=== PATIENT | male | born 1995 | race Caucasian/White ===

== ENCOUNTER 2017-05-27 05:31 | Emergency (ER) | payer OTHER ==
[2017-05-27] MEDS ORDERED: METAL LOCK LOOP XX (05:36)
[2017-05-27 07:57] LABS: BASO % 0.3 % (0.0-1.0); EOS # 0.1 10^3/uL (0.0-0.50); EOS % 0.8 % (0.0-3.0); IMMATURE GRANULOCYTE # 0.1 10^3/uL (0-0); IMMATURE GRANULOCYTE % 0.8 % (0-0); LYMPH # 0.4 10^3/uL (1.5-6.5); LYMPH % 5.4 % (24.0-44.0); MEAN CORPUSCULAR HEMOGLOBIN 39.1 pg (27.0-33.0); MEAN CORPUSCULAR VOLUME 105.7 fl (80.0-96.0); MONO # 0.2 10^3/uL (0.0-0.8); MONO % 3.2 % (0.0-5.0); NEUTROPHILS # 6.5 10^3/uL (1.8-7.7); NEUTROPHILS % 89.5 % (36.0-66.0); PLATELET COUNT, AUTOMATED 238 10^3/uL (150-450); WHITE BLOOD COUNT 7.2 10^3/uL (4.0-10.0)
[2017-05-27] MEDS: ACETAMINOPHEN 325 MG TAB PO (08:19)
[2017-05-27] MEDS: ONDANSETRON 4 MG ORAL DISINTEGRATING TAB (S0181) PO (09:06)
[2017-05-27] MEDS: OSELTAMIVIR PHOSPHATE 75 MG CAP (TAMIFLU) PO (09:06)
== END 2017-05-27 11:11 | disposition home or self-care (01) ==
LOC: M ED 05:31
DX: B34.9 Viral infection, unspecified (principal)
CPT/HCPCS: 71020

== ENCOUNTER → 2017-10-13 | Outpatient (REF) | payer OTHER | LOC: M LAB REF 13:37 | DX: R10.11 Right upper quadrant pain (principal) ==

== ENCOUNTER → 2017-10-13 | Outpatient (CLI) | payer OTHER ==
[2017-10-13 13:10] LABS: BASO % 0.7 % (0.0-1.0); EOS # 0.1 10^3/uL (0.0-0.50); EOS % 2.2 % (0.0-3.0); HEMATOCRIT 42.2 % (42.0-52.0); HEMOGLOBIN 15.3 g/dl (13.5-17.5); IMMATURE GRANULOCYTE % 0.4 % (0-3.0); LYMPH # 1.2 10^3/uL (1.5-6.5); MEAN CORPUSCULAR HEMOGLOBIN 36.3 pg (27.0-33.0); MEAN CORPUSCULAR HGB CONC 36.3 g/dl (32.0-36.5); MONO # 0.6 10^3/uL (0.0-0.8); MONO % 10.6 % (0.0-5.0); NEUTROPHILS # 3.6 10^3/uL (1.8-7.7); NEUTROPHILS % 64.1 % (36.0-66.0); PLATELET COUNT, AUTOMATED 256 10^3/uL (150-450); RED BLOOD COUNT 4.22 10^6/uL (4.30-6.10); RED CELL DISTRIBUTION WIDTH 10.8 % (11.5-14.5); WHITE BLOOD COUNT 5.5 10^3/uL (4.0-10.0)
[2017-10-13 13:33] LABS: ALBUMIN 3.9 GM/DL (3.2-5.2); ALBUMIN/GLOBULIN RATIO 1.08 (1.00-1.93); ALKALINE PHOSPHATASE 151 U/L (45-117); ALT/SGPT 40 U/L (12-78); ANION GAP 8 MEQ/L (8-16); AST/SGOT 16 U/L (7-37); BILIRUBIN,TOTAL 0.6 MG/DL (0.2-1.0); BLOOD UREA NITROGEN 15 MG/DL (7-18); CARBON DIOXIDE LEVEL 24 MEQ/L (21-32); CHLORIDE LEVEL 109 MEQ/L (98-107); CREATININE FOR GFR 0.85 MG/DL (0.70-1.30); GLOMERULAR FILTRATION RATE > 60.0 (>60); GLUCOSE, FASTING 69 MG/DL (70-100); LIPASE 92 U/L (73-393); POTASSIUM SERUM 4.1 MEQ/L (3.5-5.1); SODIUM LEVEL 141 MEQ/L (136-145); TOTAL PROTEIN 7.5 GM/DL (6.4-8.2)
== END ==
LOC: M WUC 11:06
DX: R10.11 Right upper quadrant pain (principal)
CPT/HCPCS: 83690

== ENCOUNTER 2018-03-03 11:11 | Inpatient (IN) | payer OTHER ==
[~2018-03-03 11:11] MED LIST: CEFEPIME HCL 1 GM in D5W MINI-BAG PLUS 50 ML IV
[2018-03-03 11:57] LABS: VENOUS PARTIAL PRESSURE CO2 34.9 mmHg (38.0-50.0); VENOUS PARTIAL PRESSURE O2 46.6 mmHg (30.0-50.0); VENOUS PH 7.453 UNITS (7.330-7.430); VENOUS TOTAL CO2 24.9 MEQ/L (24.0-28.0)
[2018-03-03 11:58] LABS: VENOUS BASE EXCESS 0.3 (-2.0-2.0); VENOUS HCO3 23.9 MEQ/L (23.0-27.0); VENOUS O2 SATURATION 85.5 % (60.0-80.0); VENOUS STANDARD HCO3 24.5 MEQ/L
[2018-03-03] MEDS: LEVALBUTEROL 1.25 MG/0.5 ML CONCENTRATE NEB INH (11:58)
[2018-03-03] MEDS ORDERED: CEFEPIME HCL 1 GM in D5W MINI-BAG PLUS 50 ML IV (12:00)
[2018-03-03] MEDS: NS 1,000 ML IV ×2 (12:20→14:30)
[2018-03-03] MEDS: CEFEPIME HCL 2 GM in D5W MINI-BAG PLUS 50 ML IV (12:21)
[2018-03-03] MEDS: ACETAMINOPHEN TAB 650MG DOSE (2X325MG) PO ×2 (12:24→15:14)
[2018-03-03] MEDS: NOREPINEPHRINE BITARTRATE 8 MG in D5W 492 ML IV (12:24)
[2018-03-03 12:30] LABS: BASO % 0.1 % (0.0-1.0); EOS % 0.1 % (0.0-3.0); HEMATOCRIT 30.2 % (42.0-52.0); HEMOGLOBIN 10.5 g/dl (13.5-17.5); IMMATURE GRANULOCYTE % 2.9 % (0-3.0); LYMPH # 0.5 10^3/uL (1.5-6.5); LYMPH % 3.4 % (24.0-44.0); MEAN CORPUSCULAR HEMOGLOBIN 37.8 pg (27.0-33.0); MEAN CORPUSCULAR HGB CONC 34.8 g/dl (32.0-36.5); MEAN CORPUSCULAR VOLUME 108.6 fl (80.0-96.0); MONO # 0.1 10^3/uL (0.0-0.8); MONO % 0.8 % (0.0-5.0); NEUTROPHILS # 12.4 10^3/uL (1.8-7.7); NEUTROPHILS % 92.7 % (36.0-66.0); PLATELET COUNT, AUTOMATED 210 10^3/uL (150-450); RED BLOOD COUNT 2.78 10^6/uL (4.30-6.10); RED CELL DISTRIBUTION WIDTH 13.3 % (11.5-14.5); WHITE BLOOD COUNT 13.4 10^3/uL (4.0-10.0)
[2018-03-03] MEDS ORDERED: HYDROCORTISONE 100 MG/2 ML VIAL (J1720) As Ordered (12:41)
[2018-03-03] MEDS: HYDROCORTISONE 100 MG/2 ML VIAL (J1720) IV ×2 (12:48→21:06)
[2018-03-03] MEDS: VANCOMYCIN HCL 1,000 MG, VIAL MATE ADAPTER 1 EACH in D5W 250 ML IV ×3 (12:53→18:51)
[2018-03-03 13:00] LABS: ALBUMIN 2.6 GM/DL (3.2-5.2); ALBUMIN/GLOBULIN RATIO 0.68 (1.00-1.93); ALKALINE PHOSPHATASE 77 U/L (45-117); ALT/SGPT 30 U/L (12-78); ANION GAP 9 MEQ/L (8-16); AST/SGOT 24 U/L (7-37); BILIRUBIN,DIRECT 0.3 MG/DL (0.0-0.2); BILIRUBIN,TOTAL 0.9 MG/DL (0.2-1.0); BLOOD UREA NITROGEN 6 MG/DL (7-18); CALCIUM LEVEL 8.2 MG/DL (8.5-10.1); CARBON DIOXIDE LEVEL 25 MEQ/L (21-32); CHLORIDE LEVEL 105 MEQ/L (98-107); CK-MB VALUE MASS < 1.0 NG/ML (<3.6); CPK CREATINE PHOSPHOKINASE 37 U/L (39-308); CREATININE FOR GFR 1.05 MG/DL (0.70-1.30); GLOMERULAR FILTRATION RATE > 60.0 (>60); GLUCOSE, FASTING 100 MG/DL (70-100); NT-PRO BNP 98 PG/ML (<125); POTASSIUM SERUM 3.4 MEQ/L (3.5-5.1); SODIUM LEVEL 139 MEQ/L (136-145); THYROID STIMULATING HORMONE 0.546 uIU/ML (0.358-3.740); THYROXINE (T4) 8.3 UG/DL (4.5-12.0); TOTAL PROTEIN 6.4 GM/DL (6.4-8.2); TROPONIN I < 0.02 NG/ML (< 0.10)
[2018-03-03] MEDS ORDERED: ONDANSETRON 4 MG TAB (S0181) PO (13:00)
[2018-03-03] MEDS ORDERED: LORazepam 2 MG/ML VIAL (J2060) IV (13:00)
[2018-03-03] MEDS ORDERED: LIDOCAINE 1% MDV 20ML VIAL As Ordered ×3 (13:00→13:54)
[2018-03-03 13:01] LABS: INFLUENZA A AMPLIFICATION NEGATIVE (NEGATIVE); INFLUENZA B AMPLIFICATION NEGATIVE (NEGATIVE)
[2018-03-03 13:02] LABS: PROTHROMBIN TIME 14.3 SECONDS (12.1-14.4)
[2018-03-03 13:03] LABS: PARTIAL THROMBOPLASTIN TIME 24.7 SECONDS (25.4-37.6)
[2018-03-03] MEDS: LIDOCAINE 1% MDV 20ML VIAL SC ×2 (13:03→14:04)
[2018-03-03 13:04] LABS: ABG BASE EXCESS -0.5 (-2.0-2.0); ABG HCO3 22.2 MEQ/L (22.0-26.0); ABG O2 SATURATION 97.5 % (95.0-99.0); ABG PARTIAL PRESSURE CO2 30.2 mmHg (35.0-45.0); ABG PARTIAL PRESSURE O2 85.9 mmHg (75.0-100.0); ABG STANDARD HCO3 24.1 MEQ/L (22.0-26.0); ABG TOTAL CO2 23.1 MEQ/L (22.0-29.0); ABG pH (ARTERIAL) 7.484 UNITS (7.350-7.450)
[2018-03-03 13:07] LABS: LACTIC ACID SEPSIS PROTOCOL 2.1 MMOL/L (0.4-2.0)
[2018-03-03] MEDS: NS 2,140 ML in APPROPRIATE DILUENT 1 EA IV (13:18)
[2018-03-03 13:21] LABS: AMYLASE 14 U/L (25-115)
[2018-03-03] MEDS ORDERED: MIDAZOLAM INJ 2 MG/2 ML VIAL (J2250) As Ordered ×3 (13:51)
[2018-03-03] MEDS: MIDAZOLAM INJ 2 MG/2 ML VIAL (J2250) IV (14:04)
[2018-03-03] MEDS ORDERED: MORPHINE 4 MG/ML 1ML VIAL/SYRINGE (J2270) As Ordered (14:11)
[2018-03-03] MEDS ORDERED: KETOROLAC 30 MG/ML VIAL (J1885) As Ordered (14:13)
[2018-03-03] MEDS: MORPHINE 4 MG/ML 1ML VIAL/SYRINGE (J2270) IV (14:15)
[2018-03-03] MEDS: KETOROLAC 30 MG/ML VIAL (J1885) IV ×2 (14:30→19:29)
[2018-03-03] MEDS: KCL 40MEQ IN D5/0.45NS 1000ML 1,000 ML IV (14:30)
[2018-03-03 15:09] LABS: LDH LACTATE DEHYDROGENASE 392 U/L (87-241)
[2018-03-03] MEDS: PANTOPRAZOLE 40MG INJ (PROTONIX) (C9113) IV (15:14)
[2018-03-03 15:16] LABS: APPEARANCE, BODY FLUID HAZY (CLEAR); BF MONONUCLEAR CELL % 36.3 % (0-0); BF POLYMORPHONUCLEAR CELL % 63.7 % (0-0); PH BODY FLUID 7.576 UNITS (NOT ESTABLISHED); PLEURAL FL COLOR RED (COLORLESS); RBC BODY FLUID 30 10^3/uL (<2); SOURCE, BODY FLUID PLEURAL; SOURCE, BODY FLUID pH PLEURAL; WBC BODY FLUID 1570 /uL (0-10)
[2018-03-03 15:17] LABS: BF DIFF IF INDICATED? YES (NO)
[2018-03-03 15:46] LABS: AMYLASE, BODY FLUID 8 U/L (NOT ESTABLISHED); CHOLESTEROL, BODY FLUID 69 MG/DL (NOT ESTABLISHED); LDH, BODY FLUID 989 U/L (NOT ESTABLISHED); SOURCE, BODY FLUID ALBUMIN PLEURAL; SOURCE, BODY FLUID AMYLASE PLEURAL; SOURCE, BODY FLUID CHOL PLEURAL; SOURCE, BODY FLUID LDH PLEURAL; SOURCE, BODY FLUID TOT PROTEIN PLEURAL; SOURCE, BODY FLUID TRIG PLEURAL; TOTAL PROTEIN, BODY FLUID 3.5 G/DL (NOT ESTABLISHED); TRIGLYCERIDE, BODY FLUID 33 MG/DL (NOT ESTABLISHED)
[2018-03-03 16:09] LABS: SOURCE, BODY FLUID GLUCOSE PLEURAL
[2018-03-03] MEDS ORDERED: SODIUM CHLORIDE 0.9% INJ 10 ML SYR IV ×2 (17:00)
[2018-03-03] MEDS ORDERED: SLF 3 ML SYR IV (17:00)
[2018-03-03] MEDS: GABAPENTIN 400 MG CAP PO ×2 (17:20→21:03)
[2018-03-03 17:33] LABS: LACTIC ACID SEPSIS PROTOCOL 3.1 MMOL/L (0.4-2.0)
[2018-03-03] MEDS: NS 500 ML IV (17:43)
[2018-03-03 20:13] LABS: APPEARANCE, URINE CLEAR (CLEAR); BACTERIA, URINE AUTO NEGATIVE (NEGATIVE); BILIRUBIN, URINE AUTO NEGATIVE (NEGATIVE); BLOOD, URINE BLOOD 1+ (NEGATIVE); COLOR, URINE YELLOW (YELLOW); GLUCOSE, URINE (UA) AUTO 3+ mg/dL (NEGATIVE); KETONE, URINE AUTO NEGATIVE (NEGATIVE); LEUKOCYTE ESTERASE, URINE AUTO NEGATIVE (NEGATIVE); MUCUS, URINE SMALL (NEGATIVE); NITRITE, URINE AUTO NEGATIVE (NEGATIVE); PROTEIN, URINE AUTO NEGATIVE (NEGATIVE); RBC, URINE AUTO 0 /HPF (0-3); SPECIFIC GRAVITY URINE AUTO 1.006 (1.002-1.035); SQUAMOUS EPITHELIAL CELL UR AU 0 /HPF (0-6); UROBILINOGEN, URINE AUTO 0.2 mg/dL (0.0-2.0); WBC, URINE AUTO 1 /HPF (0-3)
[2018-03-03] MEDS: valACYclovir HCL 500 MG TAB PO (21:03)
[2018-03-03] MEDS: HEPARIN SOD (PORCINE) 5000 UNITS/ML VIAL SC (21:04)
[2018-03-03] MEDS: SLF 3 ML SYR IV (21:05)
[2018-03-03] MEDS: SODIUM CHLORIDE 0.9% INJ 10 ML SYR IV (21:05)
[2018-03-03 21:49] LABS: LACTIC ACID SEPSIS PROTOCOL 2.4 MMOL/L (0.4-2.0)
[2018-03-03] MEDS: CEFEPIME HCL 1 GM in D5W MINI-BAG PLUS 50 ML IV (23:32)
[2018-03-04] MEDS: KCL 40MEQ IN D5/0.45NS 1000ML 1,000 ML IV ×3 (00:38→20:59)
[2018-03-04] MEDS: VANCOMYCIN HCL 1,000 MG, VIAL MATE ADAPTER 1 EACH in D5W 250 ML IV ×3 (01:40→17:46)
[2018-03-04] MEDS: KETOROLAC 30 MG/ML VIAL (J1885) IV ×4 (01:40→19:56)
[2018-03-04] MEDS: NOREPINEPHRINE BITARTRATE 8 MG in D5W 492 ML IV (05:04)
[2018-03-04] MEDS: HYDROCORTISONE 100 MG/2 ML VIAL (J1720) IV ×3 (05:48→20:01)
[2018-03-04] MEDS: HEPARIN SOD (PORCINE) 5000 UNITS/ML VIAL SC ×3 (05:48→21:00)
[2018-03-04] MEDS: SODIUM CHLORIDE 0.9% INJ 10 ML SYR IV ×4 (05:50→21:01)
[2018-03-04] MEDS: SLF 3 ML SYR IV ×2 (06:00→14:00)
[2018-03-04 06:01] LABS: HEMATOCRIT 27.4 % (42.0-52.0); HEMOGLOBIN 9.4 g/dl (13.5-17.5); MEAN CORPUSCULAR HEMOGLOBIN 37.3 pg (27.0-33.0); MEAN CORPUSCULAR HGB CONC 34.3 g/dl (32.0-36.5); MEAN CORPUSCULAR VOLUME 108.7 fl (80.0-96.0); PLATELET COUNT, AUTOMATED 190 10^3/uL (150-450); RED BLOOD COUNT 2.52 10^6/uL (4.30-6.10); RED CELL DISTRIBUTION WIDTH 13.1 % (11.5-14.5); WHITE BLOOD COUNT 8.3 10^3/uL (4.0-10.0)
[2018-03-04 06:02] LABS: ADD MANUAL DIFFER YES; DIFF SLIDE NUMBER 4; POS COUNT POS FLAG; POSITIVE MORPH POS FLAG
[2018-03-04 06:22] LABS: VANCOMYCIN RANDOM 14.5 UG/ML
[2018-03-04 06:31] LABS: ALBUMIN 2.2 GM/DL (3.2-5.2); ALBUMIN/GLOBULIN RATIO 0.85 (1.00-1.93); ALKALINE PHOSPHATASE 70 U/L (45-117); ALT/SGPT 23 U/L (12-78); ANION GAP 8 MEQ/L (8-16); AST/SGOT 15 U/L (7-37); BILIRUBIN,TOTAL 0.8 MG/DL (0.2-1.0); BLOOD UREA NITROGEN 7 MG/DL (7-18); CALCIUM LEVEL 7.8 MG/DL (8.5-10.1); CARBON DIOXIDE LEVEL 24 MEQ/L (21-32); CHLORIDE LEVEL 112 MEQ/L (98-107); CHOLESTEROL LEVEL 109 MG/DL (< 200); CPK CREATINE PHOSPHOKINASE 73 U/L (39-308); CREATININE FOR GFR 0.58 MG/DL (0.70-1.30); GLOMERULAR FILTRATION RATE > 60.0 (>60); GLUCOSE, FASTING 139 MG/DL (70-100); LDH LACTATE DEHYDROGENASE 333 U/L (87-241); PHOSPHORUS LEVEL 2.2 MG/DL (2.5-4.9); SODIUM LEVEL 144 MEQ/L (136-145); TOTAL PROTEIN 4.8 GM/DL (6.4-8.2); TRIGLYCERIDES LEVEL 63 MG/DL (<150)
[2018-03-04 06:40] LABS: LYMPHOCYTES 5 % (16-52); NEUTROPHILS 95 % (35-75)
[2018-03-04 06:41] LABS: PLATELET ESTIMATE NORMAL (NORMAL); TEAR DROP CELLS 1+
[2018-03-04] MEDS: NS 1,000 ML IV (08:23)
[2018-03-04] MEDS ORDERED: ALLOPURINOL 300 MG TAB PO (09:00)
[2018-03-04] MEDS: valACYclovir HCL 500 MG TAB PO ×2 (09:18→20:01)
[2018-03-04] MEDS: PANTOPRAZOLE 40MG INJ (PROTONIX) (C9113) IV (09:18)
[2018-03-04] MEDS: GABAPENTIN 400 MG CAP PO ×3 (09:18→20:01)
[2018-03-04] MEDS: ALLOPURINOL 300 MG TAB PO (10:08)
[2018-03-04] MEDS: CEFEPIME HCL 1 GM in D5W MINI-BAG PLUS 50 ML IV ×2 (12:25→23:54)
[2018-03-04] MEDS: ACETAMINOPHEN TAB 650MG DOSE (2X325MG) PO (18:40)
[2018-03-04] MEDS: guaiFENesin ER 600 MG TAB PO (20:01)
[2018-03-05] MEDS: VANCOMYCIN HCL 1,000 MG, VIAL MATE ADAPTER 1 EACH in D5W 250 ML IV ×5 (01:15→22:16)
[2018-03-05] MEDS: KETOROLAC 30 MG/ML VIAL (J1885) IV ×4 (01:15→20:25)
[2018-03-05] MEDS: HEPARIN SOD (PORCINE) 5000 UNITS/ML VIAL SC ×3 (05:30→22:16)
[2018-03-05] MEDS: HYDROCORTISONE 100 MG/2 ML VIAL (J1720) IV ×3 (05:30→20:24)
[2018-03-05] MEDS: SODIUM CHLORIDE 0.9% INJ 10 ML SYR IV ×4 (05:31→22:16)
[2018-03-05 05:53] LABS: HEMATOCRIT 25.1 % (42.0-52.0); HEMOGLOBIN 8.6 g/dl (13.5-17.5); MEAN CORPUSCULAR HEMOGLOBIN 37.7 pg (27.0-33.0); MEAN CORPUSCULAR HGB CONC 34.3 g/dl (32.0-36.5); MEAN CORPUSCULAR VOLUME 110.1 fl (80.0-96.0); PLATELET COUNT, AUTOMATED 162 10^3/uL (150-450); RED BLOOD COUNT 2.28 10^6/uL (4.30-6.10); RED CELL DISTRIBUTION WIDTH 13.2 % (11.5-14.5); WHITE BLOOD COUNT 6.8 10^3/uL (4.0-10.0)
[2018-03-05 05:56] LABS: ADD MANUAL DIFFER YES; DIFF SLIDE NUMBER 4; POS COUNT POS FLAG; POSITIVE MORPH POS FLAG
[2018-03-05] MEDS: KCL 40MEQ IN D5/0.45NS 1000ML 1,000 ML IV (06:13)
[2018-03-05 06:26] LABS: ALBUMIN/GLOBULIN RATIO 0.74 (1.00-1.93); ALKALINE PHOSPHATASE 64 U/L (45-117); ALT/SGPT 22 U/L (12-78); ANION GAP 7 MEQ/L (8-16); AST/SGOT 13 U/L (7-37); BILIRUBIN,TOTAL 0.4 MG/DL (0.2-1.0); BLOOD UREA NITROGEN 5 MG/DL (7-18); CALCIUM LEVEL 7.7 MG/DL (8.5-10.1); CARBON DIOXIDE LEVEL 26 MEQ/L (21-32); CHLORIDE LEVEL 113 MEQ/L (98-107); CHOLESTEROL LEVEL 107 MG/DL (< 200); CPK CREATINE PHOSPHOKINASE 56 U/L (39-308); CREATININE FOR GFR 0.62 MG/DL (0.70-1.30); GLOMERULAR FILTRATION RATE > 60.0 (>60); GLUCOSE, FASTING 117 MG/DL (70-100); LDH LACTATE DEHYDROGENASE 295 U/L (87-241); POTASSIUM SERUM 3.9 MEQ/L (3.5-5.1); SODIUM LEVEL 146 MEQ/L (136-145); TOTAL PROTEIN 4.7 GM/DL (6.4-8.2); TRIGLYCERIDES LEVEL 72 MG/DL (<150)
[2018-03-05 06:30] LABS: BANDS 1 % (< 11); LYMPHOCYTES 12 % (16-52); MONOCYTES 1 % (0-8); NEUTROPHILS 86 % (35-75); PLATELET ESTIMATE NORMAL (NORMAL)
[2018-03-05 06:33] LABS: TEAR DROP CELLS 1+
[2018-03-05] MEDS: guaiFENesin ER 600 MG TAB PO ×2 (09:08→20:24)
[2018-03-05] MEDS: GABAPENTIN 400 MG CAP PO ×3 (09:08→20:24)
[2018-03-05] MEDS: PANTOPRAZOLE 40MG INJ (PROTONIX) (C9113) IV (09:08)
[2018-03-05] MEDS: valACYclovir HCL 500 MG TAB PO ×2 (09:08→20:24)
[2018-03-05] MEDS: ALLOPURINOL 300 MG TAB PO (09:08)
[2018-03-05 10:14] LABS: VANCOMYCIN LEVEL TROUGH 4.9 UG/ML (10.0-20.0)
[2018-03-05] MEDS: FUROSEMIDE 20 MG/2 ML VIAL (J1940) IV (13:39)
[2018-03-05] MEDS: CEFEPIME HCL 1 GM in D5W MINI-BAG PLUS 50 ML IV ×2 (13:51→23:29)
[2018-03-05] MEDS: ACETAMINOPHEN TAB 650MG DOSE (2X325MG) PO (15:42)
[2018-03-06] MEDS: KETOROLAC 30 MG/ML VIAL (J1885) IV ×2 (02:07→08:20)
[2018-03-06] MEDS: VANCOMYCIN HCL 1,000 MG, VIAL MATE ADAPTER 1 EACH in D5W 250 ML IV (04:06)
[2018-03-06] MEDS: HYDROCORTISONE 100 MG/2 ML VIAL (J1720) IV (05:33)
[2018-03-06] MEDS: SODIUM CHLORIDE 0.9% INJ 10 ML SYR IV ×4 (05:34→20:17)
[2018-03-06] MEDS: HEPARIN SOD (PORCINE) 5000 UNITS/ML VIAL SC ×3 (05:34→20:17)
[2018-03-06] MEDS: ACETAMINOPHEN TAB 650MG DOSE (2X325MG) PO ×2 (05:55→11:57)
[2018-03-06 05:58] LABS: HEMATOCRIT 24.5 % (42.0-52.0); HEMOGLOBIN 8.4 g/dl (13.5-17.5); MEAN CORPUSCULAR HEMOGLOBIN 37.5 pg (27.0-33.0); MEAN CORPUSCULAR HGB CONC 34.3 g/dl (32.0-36.5); MEAN CORPUSCULAR VOLUME 109.4 fl (80.0-96.0); PLATELET COUNT, AUTOMATED 145 10^3/uL (150-450); RED BLOOD COUNT 2.24 10^6/uL (4.30-6.10); RED CELL DISTRIBUTION WIDTH 12.9 % (11.5-14.5); WHITE BLOOD COUNT 3.4 10^3/uL (4.0-10.0)
[2018-03-06 05:59] LABS: ADD MANUAL DIFFER YES; DIFF SLIDE NUMBER 3; POS COUNT POS FLAG; POSITIVE MORPH POS FLAG
[2018-03-06 06:34] LABS: BANDS 2 % (< 11); LYMPHOCYTES 16 % (16-52); MONOCYTES 1 % (0-8); NEUTROPHILS 81 % (35-75)
[2018-03-06 06:35] LABS: PLATELET ESTIMATE DECREASED (NORMAL); TEAR DROP CELLS 1+
[2018-03-06 07:02] LABS: ALBUMIN/GLOBULIN RATIO 0.71 (1.00-1.93); ALKALINE PHOSPHATASE 69 U/L (45-117); ALT/SGPT 34 U/L (12-78); ANION GAP 5 MEQ/L (8-16); AST/SGOT 18 U/L (7-37); BILIRUBIN,TOTAL 0.4 MG/DL (0.2-1.0); BLOOD UREA NITROGEN 11 MG/DL (7-18); CALCIUM LEVEL 7.4 MG/DL (8.5-10.1); CARBON DIOXIDE LEVEL 29 MEQ/L (21-32); CHLORIDE LEVEL 109 MEQ/L (98-107); CHOLESTEROL LEVEL 98 MG/DL (< 200); CPK CREATINE PHOSPHOKINASE 32 U/L (39-308); GLOMERULAR FILTRATION RATE > 60.0 (>60); GLUCOSE, FASTING 118 MG/DL (70-100); LDH LACTATE DEHYDROGENASE 269 U/L (87-241); PHOSPHORUS LEVEL 2.3 MG/DL (2.5-4.9); POTASSIUM SERUM 3.7 MEQ/L (3.5-5.1); SODIUM LEVEL 143 MEQ/L (136-145); TOTAL PROTEIN 4.8 GM/DL (6.4-8.2); TRIGLYCERIDES LEVEL 80 MG/DL (<150)
[2018-03-06] MEDS: GABAPENTIN 400 MG CAP PO ×3 (08:20→20:17)
[2018-03-06] MEDS: ALLOPURINOL 300 MG TAB PO (08:20)
[2018-03-06] MEDS: guaiFENesin ER 600 MG TAB PO ×2 (08:20→20:17)
[2018-03-06] MEDS: valACYclovir HCL 500 MG TAB PO ×2 (08:20→20:17)
[2018-03-06] MEDS ORDERED: LORazepam 0.5 MG TAB PO (08:30)
[2018-03-06] MEDS ORDERED: SODIUM CHLORIDE 0.9% INJ 10 ML SYR IV ×2 (09:00→10:45)
[2018-03-06] MEDS: LevoFLOXacin 500 MG TABLET PO (09:41)
[2018-03-06] MEDS: FUROSEMIDE 40 MG/4 ML VIAL (J1940) IV (09:41)
[2018-03-06] MEDS: CEPACOL LOZENGE PO ×2 (09:41→16:18)
[2018-03-06] MEDS: FAMOTIDINE 20 MG TAB PO ×2 (09:42→20:17)
[2018-03-07] MEDS: ACETAMINOPHEN TAB 650MG DOSE (2X325MG) PO (01:39)
[2018-03-07] MEDS: BENZONATATE 100 MG CAP PO ×2 (01:39→11:18)
[2018-03-07] MEDS: HEPARIN SOD (PORCINE) 5000 UNITS/ML VIAL SC ×2 (06:41→13:15)
[2018-03-07] MEDS: SODIUM CHLORIDE 0.9% INJ 10 ML SYR IV ×3 (06:41→13:16)
[2018-03-07] MEDS: LevoFLOXacin 500 MG TABLET PO (06:41)
[2018-03-07 06:58] LABS: HEMATOCRIT 25.5 % (42.0-52.0); HEMOGLOBIN 8.8 g/dl (13.5-17.5); MEAN CORPUSCULAR HEMOGLOBIN 37.8 pg (27.0-33.0); MEAN CORPUSCULAR HGB CONC 34.5 g/dl (32.0-36.5); MEAN CORPUSCULAR VOLUME 109.4 fl (80.0-96.0); PLATELET COUNT, AUTOMATED 124 10^3/uL (150-450); RED BLOOD COUNT 2.33 10^6/uL (4.30-6.10); RED CELL DISTRIBUTION WIDTH 12.9 % (11.5-14.5); WHITE BLOOD COUNT 2.2 10^3/uL (4.0-10.0)
[2018-03-07 07:01] LABS: POS COUNT POS FLAG; POSITIVE MORPH POS FLAG
[2018-03-07 07:02] LABS: ADD MANUAL DIFFER YES; DIFF SLIDE NUMBER 1
[2018-03-07 07:27] LABS: ALBUMIN 2.5 GM/DL (3.2-5.2); ALBUMIN/GLOBULIN RATIO 0.89 (1.00-1.93); ALKALINE PHOSPHATASE 89 U/L (45-117); ALT/SGPT 54 U/L (12-78); ANION GAP 7 MEQ/L (8-16); AST/SGOT 26 U/L (7-37); BILIRUBIN,TOTAL 0.5 MG/DL (0.2-1.0); BLOOD UREA NITROGEN 10 MG/DL (7-18); CALCIUM LEVEL 8.4 MG/DL (8.5-10.1); CARBON DIOXIDE LEVEL 27 MEQ/L (21-32); CHLORIDE LEVEL 109 MEQ/L (98-107); CHOLESTEROL LEVEL 89 MG/DL (< 200); CPK CREATINE PHOSPHOKINASE 35 U/L (39-308); CREATININE FOR GFR 0.76 MG/DL (0.70-1.30); GLOMERULAR FILTRATION RATE > 60.0 (>60); GLUCOSE, FASTING 106 MG/DL (70-100); LDH LACTATE DEHYDROGENASE 291 U/L (87-241); PHOSPHORUS LEVEL 3.2 MG/DL (2.5-4.9); POTASSIUM SERUM 4.4 MEQ/L (3.5-5.1); SODIUM LEVEL 143 MEQ/L (136-145); TOTAL PROTEIN 5.3 GM/DL (6.4-8.2); TRIGLYCERIDES LEVEL 91 MG/DL (<150)
[2018-03-07 08:03] LABS: BANDS 5 % (< 11); LYMPHOCYTES 31 % (16-52); MONOCYTES 3 % (0-8); NEUTROPHILS 61 % (35-75)
[2018-03-07 08:04] LABS: PLATELET ESTIMATE NORMAL (NORMAL)
[2018-03-07] MEDS: valACYclovir HCL 500 MG TAB PO (08:14)
[2018-03-07] MEDS: guaiFENesin ER 600 MG TAB PO (08:14)
[2018-03-07] MEDS: FAMOTIDINE 20 MG TAB PO (08:14)
[2018-03-07] MEDS: ALLOPURINOL 300 MG TAB PO (08:14)
[2018-03-07] MEDS: GABAPENTIN 400 MG CAP PO (08:14)
[2018-03-07] MEDS: FUROSEMIDE 40 MG/4 ML VIAL (J1940) IV (08:27)
[2018-03-07] MEDS: INFLUENZA QUADRIVALENT PF VACCINE 0.5ML SYRINGE (90686) IM (14:00)
== END 2018-03-07 14:24 | disposition home or self-care (01) | DRG 720 ==
LOC: M ED 11:11 → M ED INP 13:00 → M ICU 13:39
PROC: 02HV33Z Insertion of Infusion Device into Superior Vena Cava, Percutaneous Approach (ICD-10-PCS; principal; 2018-03-03)
PROC: 0W9930Z Drainage of Right Pleural Cavity with Drainage Device, Percutaneous Approach (ICD-10-PCS; 2018-03-03)
DX: A41.9 Sepsis, unspecified organism (principal); J86.9 Pyothorax without fistula; R65.21 Severe sepsis with septic shock; J90 Pleural effusion, not elsewhere classified; D61.810 Antineoplastic chemotherapy induced pancytopenia; E87.2 Acidosis; C40.21 Malignant neoplasm of long bones of right lower limb; J18.9 Pneumonia, unspecified organism; C40.22 Malignant neoplasm of long bones of left lower limb; E87.70 Fluid overload, unspecified; K21.9 Gastro-esophageal reflux disease without esophagitis; Z90.49 Acquired absence of other specified parts of digestive tract; Z79.899 Other long term (current) drug therapy; Z96.652 Presence of left artificial knee joint; Z88.0 Allergy status to penicillin; Z88.8 Allergy status to other drugs, medicaments and biological substances

== ENCOUNTER → 2018-03-14 | Outpatient (CLI) | payer OTHER | LOC: M SMT 09:46 | DX: J90 Pleural effusion, not elsewhere classified (principal); R91.8 Other nonspecific abnormal finding of lung field | CPT/HCPCS: 71046 ==

== ENCOUNTER 2018-05-01 15:03 | Inpatient (IN) | payer OTHER ==
[2018-05-01 17:38] LABS: BASO % 0.5 % (0.0-1.0); EOS # 0.2 10^3/uL (0.0-0.50); EOS % 8.2 % (0.0-3.0); HEMATOCRIT 21.1 % (42.0-52.0); IMMATURE GRANULOCYTE % 0.5 % (0-3.0); LYMPH # 0.4 10^3/uL (1.5-6.5); LYMPH % 16.9 % (24.0-44.0); MEAN CORPUSCULAR HEMOGLOBIN 34.5 pg (27.0-33.0); MEAN CORPUSCULAR HGB CONC 32.7 g/dl (32.0-36.5); MEAN CORPUSCULAR VOLUME 105.5 fl (80.0-96.0); MONO # 0.2 10^3/uL (0.0-0.8); MONO % 11.1 % (0.0-5.0); NEUTROPHILS # 1.3 10^3/uL (1.8-7.7); NEUTROPHILS % 62.8 % (36.0-66.0); PLATELET COUNT, AUTOMATED 176 10^3/uL (150-450); RED CELL DISTRIBUTION WIDTH 13.9 % (11.5-14.5); WHITE BLOOD COUNT 2.1 10^3/uL (4.0-10.0)
[2018-05-01 17:50] LABS: ANION GAP 7 MEQ/L (8-16); BLOOD UREA NITROGEN 7 MG/DL (7-18); CARBON DIOXIDE LEVEL 29 MEQ/L (21-32); CHLORIDE LEVEL 102 MEQ/L (98-107); CREATININE FOR GFR 1.35 MG/DL (0.70-1.30); GLOMERULAR FILTRATION RATE > 60.0 (>60); GLUCOSE, FASTING 92 MG/DL (70-100); POTASSIUM SERUM 3.4 MEQ/L (3.5-5.1); SODIUM LEVEL 138 MEQ/L (136-145)
[2018-05-01 18:00] LABS: HEMOGLOBIN 6.9 g/dl (13.5-17.5)
[2018-05-01] MEDS ORDERED: oxyCODONE 5MG TAB PO (19:45)
[2018-05-01] MEDS ORDERED: BENZONATATE 100 MG CAP PO (19:45)
[2018-05-01] MEDS ORDERED: LORazepam 0.5 MG TAB PO (19:45)
[2018-05-01 20:11] LABS: FERRITIN 1711 NG/ML (26-388); IRON (FE) 28 UG/DL (65-175); MAGNESIUM LEVEL 1.8 MG/DL (1.8-2.4); PERCENT SATURATION 18.4 % (19.7-50.0); TOTAL IRON BINDING CAPACITY 152 UG/DL (250-450)
[2018-05-01 20:15] LABS: REASON FOR REVIEW RBC MORPHOLOGY; RETIC HEMOGLOBIN EQUIVALENT 29.6 pg (24-36); RETICULOCYTE # 21.3 10^9/L (17-77); RETICULOCYTE % 1.1 % (0.5-1.5); SLIDE REVIEW Report; SOURCE PERIPHERAL SMEAR
[2018-05-01 20:26] LABS: FOLATE 5.5 NG/ML; VITAMIN B12 LEVEL 519 PG/ML
[2018-05-01 20:52] LABS: IMMEDIATE SPIN CROSSMATCH 1 2
[2018-05-01] MEDS: SENOKOT S TAB PO (22:00)
[2018-05-01] MEDS: POTASSIUM CHLORIDE 10 MEQ SR TABLET PO (22:00)
[2018-05-01] MEDS: GABAPENTIN 300 MG CAP PO (22:00)
[2018-05-01] MEDS: HEPARIN SOD (PORCINE) 5000 UNITS/ML VIAL SC (22:00)
[2018-05-02] MEDS: ACETAMINOPHEN TAB 650MG DOSE (2X325MG) PO (01:58)
[2018-05-02] MEDS: VANCOMYCIN HCL 1,000 MG, VIAL MATE ADAPTER 1 EACH in D5W 250 ML IV ×3 (02:00→13:22)
[2018-05-02] MEDS: AZITHROMYCIN INJ 500 MG, VIAL MATE ADAPTER 1 EACH in D5W 250 ML IV (04:52)
[2018-05-02] MEDS ORDERED: CEFEPIME HCL 2 GM in D5W MINI-BAG PLUS 50 ML IV (05:00)
[2018-05-02] MEDS: ONDANSETRON 4MG/2ML VIAL (J2405) IV (05:09)
[2018-05-02 07:04] LABS: BASO % 0.4 % (0.0-1.0); EOS # 0.1 10^3/uL (0.0-0.50); EOS % 5.6 % (0.0-3.0); HEMATOCRIT 25.2 % (42.0-52.0); HEMOGLOBIN 8.3 g/dl (13.5-17.5); IMMATURE GRANULOCYTE % 0.9 % (0-3.0); LYMPH # 0.6 10^3/uL (1.5-6.5); LYMPH % 24.9 % (24.0-44.0); MEAN CORPUSCULAR HEMOGLOBIN 33.3 pg (27.0-33.0); MEAN CORPUSCULAR HGB CONC 32.9 g/dl (32.0-36.5); MEAN CORPUSCULAR VOLUME 101.2 fl (80.0-96.0); MONO # 0.3 10^3/uL (0.0-0.8); MONO % 11.6 % (0.0-5.0); NEUTROPHILS # 1.3 10^3/uL (1.8-7.7); NEUTROPHILS % 56.6 % (36.0-66.0); PLATELET COUNT, AUTOMATED 163 10^3/uL (150-450); RED BLOOD COUNT 2.49 10^6/uL (4.30-6.10); RED CELL DISTRIBUTION WIDTH 16.3 % (11.5-14.5); WHITE BLOOD COUNT 2.3 10^3/uL (4.0-10.0)
[2018-05-02 07:34] LABS: ALBUMIN 2.5 GM/DL (3.2-5.2); ALBUMIN/GLOBULIN RATIO 0.69 (1.00-1.93); ALKALINE PHOSPHATASE 161 U/L (45-117); ALT/SGPT 33 U/L (12-78); ANION GAP 8 MEQ/L (8-16); AST/SGOT 33 U/L (7-37); BILIRUBIN,TOTAL 0.6 MG/DL (0.2-1.0); BLOOD UREA NITROGEN 4 MG/DL (7-18); CALCIUM LEVEL 8.1 MG/DL (8.5-10.1); CARBON DIOXIDE LEVEL 27 MEQ/L (21-32); CHLORIDE LEVEL 102 MEQ/L (98-107); CREATININE FOR GFR 1.29 MG/DL (0.70-1.30); GLOMERULAR FILTRATION RATE > 60.0 (>60); GLUCOSE, FASTING 91 MG/DL (70-100); LDH LACTATE DEHYDROGENASE 381 U/L (87-241); MAGNESIUM LEVEL 1.9 MG/DL (1.8-2.4); POTASSIUM SERUM 3.4 MEQ/L (3.5-5.1); SODIUM LEVEL 137 MEQ/L (136-145); TOTAL PROTEIN 6.1 GM/DL (6.4-8.2)
[2018-05-02] MEDS: SODIUM CHLORIDE 0.9% INJ 10 ML SYR IV (07:55)
[2018-05-02] MEDS: SENOKOT S TAB PO (09:46)
[2018-05-02] MEDS: FLUDROCORTISONE ACETATE 0.1 MG TAB PO (09:47)
[2018-05-02] MEDS: CEFEPIME HCL 2 GM in D5W MINI-BAG PLUS 50 ML IV (09:47)
[2018-05-02] MEDS: GABAPENTIN 300 MG CAP PO (09:47)
[2018-05-02] MEDS: HEPARIN SOD (PORCINE) 5000 UNITS/ML VIAL SC (09:47)
[2018-05-02 13:42] LABS: HEMATOCRIT 24.7 % (42.0-52.0); HEMOGLOBIN 8.2 g/dl (13.5-17.5); MEAN CORPUSCULAR HEMOGLOBIN 33.1 pg (27.0-33.0); MEAN CORPUSCULAR HGB CONC 33.2 g/dl (32.0-36.5); MEAN CORPUSCULAR VOLUME 99.6 fl (80.0-96.0); PLATELET COUNT, AUTOMATED 169 10^3/uL (150-450); RED BLOOD COUNT 2.48 10^6/uL (4.30-6.10); RED CELL DISTRIBUTION WIDTH 16.2 % (11.5-14.5); WHITE BLOOD COUNT 2.1 10^3/uL (4.0-10.0)
[2018-05-02 13:46] LABS: KETONE, URINE AUTO RFX NEGATIVE (NEGATIVE); LEUKOCYTE ESTERASE UR AUTO RFX NEGATIVE (NEGATIVE); MUCUS, URINE RFX SMALL (NEGATIVE); NITRITE, URINE AUTO RFX NEGATIVE (NEGATIVE); RBC, URINE AUTO RFX 1 /HPF (0-3); SPECIFIC GRAVITY UR AUTO RFX 1.003 (1.002-1.035); SQUAM EPITHELIAL CELL UR AURFX 0 /HPF (0-6); WBC, URINE AUTO RFX 1 /HPF (0-3)
== END 2018-05-02 18:32 | disposition home or self-care (01) | DRG 343 ==
LOC: M PCU 05-02 04:27 → M ED 15:03 → M ED INP 19:48
PROC: 30233N1 Transfusion of Nonautologous Red Blood Cells into Peripheral Vein, Percutaneous Approach (ICD-10-PCS; principal; 2018-05-01)
DX: C40 Malignant neoplasm of bone and articular cartilage of limbs (principal); J90 Pleural effusion, not elsewhere classified; N17.9 Acute kidney failure, unspecified; D70.8 Other neutropenia; C78.01 Secondary malignant neoplasm of right lung; E87.6 Hypokalemia; D63.0 Anemia in neoplastic disease; M21.372 Foot drop, left foot; Z96.652 Presence of left artificial knee joint; Z79.891 Long term (current) use of opiate analgesic; Z90.49 Acquired absence of other specified parts of digestive tract; Z79.899 Other long term (current) drug therapy